=== PATIENT | female | born 1985 | race American Indian/Alaskan Native ===

== ENCOUNTER 2016-12-11 11:51 | Emergency (ER) | payer MEDICAID ==
[2016-12-11 12:41] LABS: Basophils % (Auto) 0.5 % (0.0-1.8); Eosinophils % (Auto) 0.7 % (0.0-4.3); Hematocrit 35.6 % (30.3-42.9); Hemoglobin 11.3 gm/dl (10.1-14.3); Mean Corpuscular HGB Conc 32 % (30-34); Mean Corpuscular Volume 80 fl (79-97); Platelet Count 447 K/mm3 (140-440); Red Blood Count 4.45 M/mm3 (3.65-5.03); Red Cell Distribution Width 18.9 % (13.2-15.2); White Blood Count 10.9 K/mm3 (4.5-11.0)
[2016-12-11 12:45] LABS: Mean Corpuscular Hemoglobin 25 pg (28-32)
[2016-12-11 12:52] LABS: Anion Gap 17 mmol/L; BUN/Creatinine Ratio 8.33; Blood Urea Nitrogen 5 mg/dL (7-17); Calcium 9.1 mg/dL (8.4-10.2); Carbon Dioxide 24 mmol/L (22-30); Chloride 102.2 mmol/L (98-107); Glucose 121 mg/dL (65-100); Potassium 3.5 mmol/L (3.6-5.0); Sodium 140 mmol/L (137-145)
[2016-12-11] MEDS ORDERED: ATIVAN IV ONE (13:03)
[2016-12-11] MEDS ORDERED: NACL 0.9% 1000 ML 1,000 ML IV ONE (13:03)
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
[2016-12-11 13:20] LABS: Urine Drugs of Abuse Note Disclamer
[2016-12-11 13:42] LABS: Bacteria,Urine 2+ /HPF (Negative); Bilirubin,Urine NEG (Negative); Blood,Urine SM (Negative); Ketones,Urine NEG (Negative); Leukocyte Esterase,Urine MOD (Negative); Mucus,Urine 1+ /HPF; Nitrite,Urine POS (Negative); Urobilinogen,Urine < 2.0 mg/dL (<2.0)
[2016-12-11 14:56] VITALS: BP 176/92
== END 2016-12-11 14:59 | disposition home or self-care (01) ==
LOC: ED 11:51
DX: T65.91XA Toxic effect of unspecified substance, accidental (unintentional), initial encounter (principal); F19.10 Other psychoactive substance abuse, uncomplicated; F12.90 Cannabis use, unspecified, uncomplicated; Y92.89 Other specified places as the place of occurrence of the external cause; Z91.041 Radiographic dye allergy status; Z91.013 Allergy to seafood
CPT/HCPCS: 36415; 80048; 80307; 81001; 81025; 85025; 96361; 96374; 99283; J2060; J7030

== ENCOUNTER 2018-08-26 07:30 | Emergency (ER) | payer MEDICAID ==
[2018-08-26] MEDS ORDERED: ASPIRIN PO ONE (09:01)
--- NOTE | 2018-08-26 09:21 | Emergency Department Report ---
ED General Adult HPI - General Chief complaint: Abdominal Pain Stated complaint: CHEST PAIN/LOWER PAIN Time Seen by Provider: 08/26/18 09:13 Source: patient Mode of arrival: Ambulatory Limitations: No Limitations - History of Present Illness Initial comments: This is a 33-year-old female with no medical history and no primary care with a litany of complaints. Her primary reason for coming is episodes of chest and back pain which are seconds in duration occurring 3-4 times a day for the last 2 weeks. This is her first visit for the same. The patient has multiple other complaints to include abdomen and leg pain anterior thigh. She appears to have allodynia. She states that body parts hurt when she moves. She complains of discomfort on a deep inspiration in her chest but no shortness of breath or truly pleuritic pain. She denies fever or chills. She denies nausea vomiting diarrhea or any apparent change. -: week(s) Location: chest, back, abdomen, lower extremity Radiation: non-radiation Severity scale (0 -10): 4 Quality: aching, other (very brief duration "seconds".) Consistency: intermittent Improves with: none Worsens with: movement Associated Symptoms: denies other symptoms Treatments Prior to Arrival: none - Related Data Previous Rx's Medication Instructions Recorded Last Taken Type ALPRAZolam [Xanax TAB] 0.5 mg PO BID PRN #6 tab 12/11/16 Unknown Rx Ciprofloxacin HCl [Ciprofloxacin 500 mg PO Q12HR 7 Days tab 12/11/16 Unknown Rx TAB] Sulfamethoxazole/Trimethoprim 1 each PO BID #6 tablet 12/11/16 Unknown Rx [Bactrim DS TAB] Ferrous Gluconate [Fergon 325 MG 325 mg PO TID #20 tablet 08/26/18 Unknown Rx tab] HYDROcodone/APAP 5-325 [[place] 1 each PO Q6HR PRN #10 tablet 08/26/18 Unknown Rx 5/325] Sulfamethoxazole/Trimethoprim 1 each PO BID #14 tablet 08/26/18 Unknown Rx [Bactrim DS TAB] Allergies Allergy/AdvReac Type Severity Reaction Status Date / Time apple Allergy Itching Verified 08/26/18 07:32 Iodinated Contrast- Oral and Allergy Swelling Verified 08/26/18 07:32 IV Dye shellfish derived Allergy Swelling Verified 08/26/18 07:32 ED Review of Systems ROS: Stated complaint: CHEST PAIN/LOWER PAIN Other details as noted in HPI Constitutional: denies: chills, fever Eyes: denies: eye pain, eye discharge, vision change ENT: denies: ear pain, throat pain Respiratory: denies: cough, shortness of breath, wheezing Cardiovascular: chest pain. denies: palpitations Endocrine: no symptoms reported Gastrointestinal: abdominal pain. denies: nausea, diarrhea Genitourinary: abnormal menses. denies: urgency, dysuria, discharge Musculoskeletal: back pain, myalgia. denies: joint swelling, arthralgia Skin: denies: rash, lesions Neurological: denies: headache, weakness, paresthesias Psychiatric: denies: anxiety, depression Hematological/Lymphatic: denies: easy bleeding, easy bruising ED Past Medical Hx - Past Medical History Previous Medical History?: No - Surgical History Hx Cholecystectomy: Yes Additional Surgical History: - Social History Smoking Status: Never Smoker Substance Use Type: None - Medications Home Medications: Home Medications Medication Instructions Recorded Confirmed Last Taken Type ALPRAZolam [Xanax TAB] 0.5 mg PO BID PRN #6 tab 12/11/16 Unknown Rx Ciprofloxacin HCl [Ciprofloxacin 500 mg PO Q12HR 7 Days tab 12/11/16 Unknown Rx TAB] Sulfamethoxazole/Trimethoprim 1 each PO BID #6 tablet 12/11/16 Unknown Rx [Bactrim DS TAB] Ferrous Gluconate [Fergon 325 MG 325 mg PO TID #20 tablet 08/26/18 Unknown Rx tab] HYDROcodone/APAP 5-325 [[place] 1 each PO Q6HR PRN #10 tablet 08/26/18 Unknown Rx 5/325] Sulfamethoxazole/Trimethoprim 1 each PO BID #14 tablet 08/26/18 Unknown Rx [Bactrim DS TAB] ED Physical Exam - General Limitations: No Limitations General appearance: obese - Head Head exam: Present: atraumatic, normocephalic - Eye Eye exam: Present: normal appearance - ENT ENT exam: Present: mucous membranes moist - Neck Neck exam: Present: normal inspection. Absent: tenderness, meningismus - Respiratory Respiratory exam: Present: normal lung sounds bilaterally. Absent: respiratory distress - Cardiovascular Cardiovascular Exam: Present: regular rate, normal rhythm. Absent: systolic murmur, diastolic murmur, rubs, gallop - GI/Abdominal GI/Abdominal exam: Present: soft, normal bowel sounds. Absent: distended, tenderness, guarding, rebound, rigid - Extremities Exam Extremities exam: Present: normal inspection, full ROM, normal capillary refill. Absent: tenderness, pedal edema, joint swelling, calf tenderness - Back Exam Back exam: Present: normal inspection. Absent: CVA tenderness (R), CVA tenderness (L) - Neurological Exam Neurological exam: Present: alert, oriented X3, CN II-XII intact. Absent: motor sensory deficit - Psychiatric Psychiatric exam: Present: normal affect, normal mood - Skin Skin exam: Present: warm, dry, intact, normal color. Absent: rash ED Course Vital Signs 08/26/18 08/26/18 08/26/18 07:34 08:30 08:31 Temperature 98.1 F Pulse Rate 94 H 86 85 Respiratory 18 14 17 Rate Blood Pressure 152/84 O2 Sat by Pulse 99 Oximetry 08/26/18 08/26/18 08/26/18 08:33 08:35 08:37 Temperature Pulse Rate 83 86 83 Respiratory 28 H 20 20 Rate Blood Pressure 133/75 133/75 O2 Sat by Pulse 99 98 96 Oximetry 08/26/18 08/26/18 08:38 08:39 Temperature Pulse Rate 84 Respiratory 18 17 Rate Blood Pressure 133/75 O2 Sat by Pulse 100 97 Oximetry - Reevaluation(s) Reevaluation #1: Patient is a significant pain in the emergency department. Her CT perhaps is most indicative of a recent viral illness. She has some lymphadenopathy but nothing abnormal intra-abdominal or in her chest. She is appropriate for outpatient follow-up. 08/26/18 13:05 ED Medical Decision Making - Lab Data Result diagrams: 08/26/18 09:08 08/26/18 09:08 Laboratory Results - last 24 hr 08/26/18 08/26/18 08/26/18 09:08 09:08 09:08 WBC 10.1 RBC 3.64 L Hgb 9.3 L Hct 28.5 L MCV 78 L MCH 25 L MCHC 33 RDW 17.9 H Plt Count 490 H Lymph % (Auto) 18.5 [place] % (Auto) 5.5 Eos % (Auto) 4.0 Baso % (Auto) 0.5 Lymph # 1.9 [place] # 0.5 Eos # 0.4 Baso # 0.1 Seg Neutrophils % 71.5 H Seg Neutrophils # 7.2 PT INR APTT D-Dimer Sodium 136 L Potassium 3.9 Chloride 101.7 Carbon Dioxide 24 Anion Gap 14 BUN 7 Creatinine 0.6 L Estimated GFR > 60 BUN/Creatinine Ratio 12 Glucose 99 Calcium 7.9 L Magnesium 1.90 Total Bilirubin 0.50 Direct Bilirubin < 0.2 Indirect Bilirubin 0.3 AST 16 ALT 16 Alkaline Phosphatase 100 Total Creatine Kinase 60 CK-MB (CK-2) < 1.0 CK-MB (CK-2) Rel Index 1.6 Troponin T < 0.010 NT-Pro-B Natriuret Pep 37.75 Total Protein 8.4 H Albumin 3.3 L Albumin/Globulin Ratio 0.6 Lipase 29 HCG, Qual 08/26/18 08/26/18 09:26 09:26 WBC RBC Hgb Hct MCV MCH MCHC RDW Plt Count Lymph % (Auto) [place] % (Auto) Eos % (Auto) Baso % (Auto) Lymph # [place] # Eos # Baso # Seg Neutrophils % Seg Neutrophils # PT 13.9 INR 1.01 APTT 30.4 D-Dimer 638.52 H Sodium Potassium Chloride Carbon Dioxide Anion Gap BUN Creatinine Estimated GFR BUN/Creatinine Ratio Glucose Calcium Magnesium Total Bilirubin Direct Bilirubin Indirect Bilirubin AST ALT Alkaline Phosphatase Total Creatine Kinase CK-MB (CK-2) CK-MB (CK-2) Rel Index Troponin T NT-Pro-B Natriuret Pep Total Protein Albumin Albumin/Globulin Ratio Lipase HCG, Qual Negative - EKG Data -: EKG Interpreted by Ut EKG shows normal: sinus rhythm, axis, intervals, QRS complexes, ST-T waves Rate: normal - EKG Data Interpretation: no acute changes - Radiology Data Radiology results: report reviewed Contrast bolus is adequate. The thoracic aorta, abdominal aorta and all major branches are widely patent with less than 10% stenosis. No atherosclerotic disease, stenosis, aneurysm or dissection. Heart size is borderline. The lungs are clear. No mediastinal mass or adenopathy. There are multiple borderline to mildly enlarged lymph nodes in the axillary chains. One of the largest lymph nodes measures 2.6 x 1.7 cm and the left axilla. The gallbladder has been removed. The liver, biliary system, pancreas, spleen, kidneys, adrenal glands, bowel loops and appendix are unremarkable. The uterus and right adnexa are unremarkable. A 4.8 x 3.7 cm cyst is suspected in the left ovary. The bladder is within normal limits. There are multiple borderline to mildly enlarged bilateral inguinal lymph nodes. One of the largest lymph nodes measures 2.4 x 1.4 cm in the right groin. No intra-abdominal adenopathy is appreciated. IMPRESSION: Normal CTA of the chest abdomen and pelvis. Left ovarian cyst. Borderline to mildly enlarged bilateral axillary and inguinal lymph nodes. Followup is recommended. Critical care attestation.: If time is entered above; I have spent that time in minutes in the direct care of this critically ill patient, excluding procedure time. ED Disposition Clinical Impression: Systemic viral illness, Lymphadenopathy Chest pain Qualifiers: Chest pain type: unspecified Qualified Code(s): R07.9 - Chest pain, unspecified Disposition: TO HOME OR SELFCARE Is pt being admited?: No Does the pt Need Aspirin: No Condition: Stable Instructions: Abdominal Pain (ED), Chest Pain (ED), Lymphadenopathy (ED) Additional Instructions: Further evaluation the primary care setting is recommended. Return any acute change or worsening symptoms. Increase fluids. Return difficulty in breathing fever or chills. Increase fluids and rest. I'm going to put you on iron supplements for your anemia as well. Prescriptions: Ferrous Gluconate [Fergon 325 MG tab] 325 mg PO TID #20 tablet HYDROcodone/APAP 5-325 [Glide 5/325] 1 each PO Q6HR PRN #10 tablet PRN Reason: Pain Sulfamethoxazole/Trimethoprim [Bactrim DS TAB] 1 each PO BID #14 tablet Referrals: [facility] [Provider Group] - 2-3 Days PRIMARY CARE, [Primary Care Provider] - 24 Hours Time of Disposition: 13:07
[2018-08-26 09:30] LABS: Basophils # (Auto) 0.1 K/mm3 (0.0-0.1); Basophils % (Auto) 0.5 % (0.0-1.8); Eosinophils # (Auto) 0.4 K/mm3 (0.0-0.4); Hematocrit 28.5 % (30.3-42.9); Hemoglobin 9.3 gm/dl (10.1-14.3); Lymphocytes # (Auto) 1.9 K/mm3 (1.2-5.4); Lymphocytes % (Auto) 18.5 % (13.4-35.0); Mean Corpuscular HGB Conc 33 % (30-34); Mean Corpuscular Volume 78 fl (79-97); Monocytes # (Auto) 0.5 K/mm3 (0.0-0.8); Monocytes % (Auto) 5.5 % (0.0-7.3); Platelet Count 490 K/mm3 (140-440); Red Blood Count 3.64 M/mm3 (3.65-5.03); Red Cell Distribution Width 17.9 % (13.2-15.2)
[2018-08-26 09:31] LABS: BUN/Creatinine Ratio 12; Blood Urea Nitrogen 7 mg/dL (7-17); Calcium 7.9 mg/dL (8.4-10.2); Hemolysis Index 6
[2018-08-26 09:43] LABS: INR 1.01 (0.87-1.13)
[2018-08-26 09:44] LABS: Partial Thromboplastin Time 30.4 Sec. (24.2-36.6)
[2018-08-26 10:06] LABS: Alanine Aminotransferase 16 units/L (7-56); Albumin 3.3 g/dL (3.9-5)
[2018-08-26 10:09] LABS: Bilirubin,Direct < 0.2 mg/dL (0-0.2); Creatine Kinase MB < 1.0 ng/mL (0.0-4.0)
--- NOTE | 2018-08-26 11:03 | XRay Report ---
AP CHEST: HISTORY: chest pain AP view of the chest demonstrates a normal mediastinal and cardiac contour with clear lungs and normal bony and soft tissue structures. IMPRESSION: Unremarkable AP chest.
--- NOTE | 2018-08-26 12:26 | Cat Scan Report ---
CT ANGIOGRAM CHEST CT ANGIOGRAM ABDOMEN AND PELVIS History: Chest pain, abdominal pain. Technique: Helical CT following IV contrast. Sagittal and coronal reformatted images. No 3-dimensional reformations were present at the time of dictation. Findings: Contrast bolus is adequate. The thoracic aorta, abdominal aorta and all major branches are widely patent with less than 10% stenosis. No atherosclerotic disease, stenosis, aneurysm or dissection. Heart size is borderline. The lungs are clear. No mediastinal mass or adenopathy. There are multiple borderline to mildly enlarged lymph nodes in the axillary chains. One of the largest lymph nodes measures 2.6 x 1.7 cm and the left axilla. The gallbladder has been removed. The liver, biliary system, pancreas, spleen, kidneys, adrenal glands, bowel loops and appendix are unremarkable. The uterus and right adnexa are unremarkable. A 4.8 x 3.7 cm cyst is suspected in the left ovary. The bladder is within normal limits. There are multiple borderline to mildly enlarged bilateral inguinal lymph nodes. One of the largest lymph nodes measures 2.4 x 1.4 cm in the right groin. No intra-abdominal adenopathy is appreciated. IMPRESSION: Normal CTA of the chest abdomen and pelvis. Left ovarian cyst. Borderline to mildly enlarged bilateral axillary and inguinal lymph nodes. Followup is recommended.
[2018-08-26] MEDS ORDERED: ASPIRIN ONE (12:35)
[2018-08-26 13:37] VITALS: BP 150/87
== END 2018-08-26 13:37 | disposition home or self-care (01) ==
LOC: ED 07:30
DX: B33.8 Other specified viral diseases (principal); R59.1 Generalized enlarged lymph nodes; R07.9 Chest pain, unspecified; Z91.041 Radiographic dye allergy status; Z91.013 Allergy to seafood; Z91.018 Allergy to other foods
CPT/HCPCS: 36415; 71045; 71275; 74174; 80048; 80076; 82550; 82553; 83690; 83735; 83880; 84484; 84703; 85025; 85379; 85610; 85730; 93005; 93010; 99285; Q9967

== ENCOUNTER 2018-09-07 15:47 | Emergency (ER) | payer MEDICAID ==
[2018-09-07 16:41] VITALS: BP 160/105
[2018-09-07] MEDS ORDERED: BICILLIN L-A IM ONE (16:43)
--- NOTE | 2018-09-07 16:44 | Emergency Department Report ---
ED Female HPI - General Chief complaint: Urogenital-Female Stated complaint: STD CHECK Time Seen by Provider: 09/07/18 16:38 Source: patient Mode of arrival: Ambulatory Limitations: No Limitations - History of Present Illness Initial comments: Patient is [facility] since their next appt is not until next . Patient denies any abx allergies. No fever or chills. Are you Now?: No - Related Data Sexually active: Yes Previous Rx's Medication Instructions Recorded Last Taken Type ALPRAZolam [Xanax TAB] 0.5 mg PO BID PRN #6 tab 12/11/16 Unknown Rx Ciprofloxacin HCl [Ciprofloxacin 500 mg PO Q12HR 7 Days tab 12/11/16 Unknown Rx TAB] Sulfamethoxazole/Trimethoprim 1 each PO BID #6 tablet 12/11/16 Unknown Rx [Bactrim DS TAB] Ferrous Gluconate [Fergon 325 MG 325 mg PO TID #20 tablet 08/26/18 Unknown Rx tab] HYDROcodone/APAP 5-325 [[place] 1 each PO Q6HR PRN #10 tablet 08/26/18 Unknown Rx 5/325] Sulfamethoxazole/Trimethoprim 1 each PO BID #14 tablet 08/26/18 Unknown Rx [Bactrim DS TAB] Allergies Allergy/AdvReac Type Severity Reaction Status Date / Time apple Allergy Itching Verified 09/07/18 15:49 Iodinated Contrast- Oral and Allergy Swelling Verified 09/07/18 15:49 IV Dye shellfish derived Allergy Swelling Verified 09/07/18 15:49 ED Review of Systems ROS: Stated complaint: STD CHECK Other details as noted in HPI Comment: All other systems reviewed and negative ED Past Medical Hx - Surgical History Hx Cholecystectomy: Yes Additional Surgical History: - Social History Smoking Status: Never Smoker Substance Use Type: None - Medications Home Medications: Home Medications Medication Instructions Recorded Confirmed Last Taken Type ALPRAZolam [Xanax TAB] 0.5 mg PO BID PRN #6 tab 12/11/16 Unknown Rx Ciprofloxacin HCl [Ciprofloxacin 500 mg PO Q12HR 7 Days tab 12/11/16 Unknown Rx TAB] Sulfamethoxazole/Trimethoprim 1 each PO BID #6 tablet 12/11/16 Unknown Rx [Bactrim DS TAB] Ferrous Gluconate [Fergon 325 MG 325 mg PO TID #20 tablet 08/26/18 Unknown Rx tab] HYDROcodone/APAP 5-325 [[place] 1 each PO Q6HR PRN #10 tablet 08/26/18 Unknown Rx 5/325] Sulfamethoxazole/Trimethoprim 1 each PO BID #14 tablet 08/26/18 Unknown Rx [Bactrim DS TAB] ED Physical Exam - General Limitations: No Limitations General appearance: alert, in no apparent distress - Head Head exam: Present: atraumatic, normocephalic - Eye Eye exam: Present: normal appearance - Neurological Exam Neurological exam: Present: alert, oriented X3 - Psychiatric Psychiatric exam: Present: normal affect, normal mood - Skin Skin exam: Present: warm, dry, intact, normal color. Absent: rash ED Medical Decision Making - Medical Decision Making Patient has been seen by this provider. Patient will be given first PCN injection and is instructed to follow up with [facility] for next treatment. Patient verbalized understand. Critical care attestation.: If time is entered above; I have spent that time in minutes in the direct care of this critically ill patient, excluding procedure time. ED Disposition Clinical Impression: Syphilis Disposition: DC- TO HOME OR SELFCARE Is pt being admited?: No Does the pt Need Aspirin: No Condition: Stable Instructions: Syphilis (ED) Additional Instructions: Please follow up with [facility] for next treatment. [facility]errals: [facility] [Outside] - 3-5 Days [facility] [place] [Outside] - 3-5 Days [facility] [Outside] - 3-5 Days
== END 2018-09-07 17:07 | disposition home or self-care (01) ==
LOC: ED 15:47
DX: A53.9 Syphilis, unspecified (principal); Z91.018 Allergy to other foods; Z91.013 Allergy to seafood; Z91.041 Radiographic dye allergy status; Z90.49 Acquired absence of other specified parts of digestive tract
CPT/HCPCS: 96372; 99282; J0561

== ENCOUNTER 2020-06-05 11:52 | Emergency (ER) | payer MEDICAID ==
--- NOTE | 2020-06-05 14:27 | Emergency Department Report ---
<ADELAIDE LARA - Last Filed: 06/05/20 19:18> ED General Adult HPI - General Chief complaint: Back Pain/Injury Stated complaint: RT SIDE PAIN Time Seen by Provider: 06/05/20 13:42 Source: patient Mode of arrival: Ambulatory Limitations: No Limitations - History of Present Illness Initial comments: Patient is a 34-year-old female presents emergency room with complaints of right flank pain that began a few days ago. She denies any fall or injury. She states that the pain is worse with movement. She states that she feels a pulling sensation whenever she stands up. She denies any chest pain, pleuritic chest pain, shortness of breath, cough, hemoptysis, nausea, vomiting, diarrhea, fever, dysuria, urinary frequency, numbness, weakness, bowel or bladder incontinence. No past medical history. No allergies to medications. Last menstrual cycle 05/18/2020. She states that she was previously allergic to shellfish and that is why she believes she had a contrast allergy but she is now able to eat shellfish without difficulty therefore patient does not have allergy to IV contrast. Past surgical history of cholecystectomy. - Related Data Previous Rx's Medication Instructions Recorded Last Taken Type ALPRAZolam [Xanax TAB] 0.5 mg PO BID PRN #6 tab 12/11/16 Unknown Rx Ciprofloxacin HCl [Ciprofloxacin 500 mg PO Q12HR 7 Days tab 12/11/16 Unknown Rx TAB] Sulfamethoxazole/Trimethoprim 1 each PO BID #6 tablet 12/11/16 Unknown Rx [Bactrim DS TAB] Ferrous Gluconate [Fergon 325 MG 325 mg PO TID #20 tablet 08/26/18 Unknown Rx tab] HYDROcodone/APAP 5-325 [[place] 1 each PO Q6HR PRN #10 tablet 08/26/18 Unknown Rx 5/325] Sulfamethoxazole/Trimethoprim 1 each PO BID #14 tablet 08/26/18 Unknown Rx [Bactrim DS TAB] Allergies Allergy/AdvReac Type Severity Reaction Status Date / Time apple Allergy Itching Verified 09/07/18 15:49 shellfish derived Allergy Swelling Verified 09/07/18 15:49 Iodinated Contrast Media AdvReac Unknown Unknown Unverified 06/05/20 17:05 ED Review of Systems Comment: All other systems reviewed and negative ED Past Medical Hx - Past Medical History Previous Medical History?: No - Surgical History Hx Cholecystectomy: Yes Additional Surgical History: - Social History Smoking Status: Never Smoker - Medications Home Medications: Home Medications Medication Instructions Recorded Confirmed Last Taken Type ALPRAZolam [Xanax TAB] 0.5 mg PO BID PRN #6 tab 12/11/16 Unknown Rx Ciprofloxacin HCl [Ciprofloxacin 500 mg PO Q12HR 7 Days tab 12/11/16 Unknown Rx TAB] Sulfamethoxazole/Trimethoprim 1 each PO BID #6 tablet 12/11/16 Unknown Rx [Bactrim DS TAB] Ferrous Gluconate [Fergon 325 MG 325 mg PO TID #20 tablet 08/26/18 Unknown Rx tab] HYDROcodone/APAP 5-325 [[place] 1 each PO Q6HR PRN #10 tablet 08/26/18 Unknown Rx 5/325] Sulfamethoxazole/Trimethoprim 1 each PO BID #14 tablet 08/26/18 Unknown Rx [Bactrim DS TAB] ED Physical Exam - General Limitations: No Limitations General appearance: alert, in no apparent distress - Head Head exam: Present: atraumatic, normocephalic - Eye Eye exam: Present: normal appearance - ENT ENT exam: Present: mucous membranes moist - Respiratory Respiratory exam: Present: normal lung sounds bilaterally. Absent: respiratory distress, wheezes, rales, rhonchi, stridor, chest wall tenderness, accessory muscle use, decreased breath sounds, prolonged expiratory - Cardiovascular Cardiovascular Exam: Present: regular rate, normal rhythm, normal heart sounds. Absent: systolic murmur, diastolic murmur, rubs, gallop - GI/Abdominal GI/Abdominal exam: Present: soft, tenderness (mild RUQ), normal bowel sounds. Absent: distended, guarding, rebound, rigid - Back Exam Back exam: Present: normal inspection, full ROM, CVA tenderness (R) (mild). Absent: CVA tenderness (L), paraspinal tenderness, vertebral tenderness - Neurological Exam Neurological exam: Present: alert, oriented X3, CN II-XII intact, normal gait. Absent: motor sensory deficit - Psychiatric Psychiatric exam: Present: normal affect, normal mood - Skin Skin exam: Present: warm, dry, intact ED Course - Consultations Consultation #1: 06/05/20 18:[address] Higgins, radiologist who advised that there is a typo in the radiology report, it is supposed to say recommend ultrasound of right ovarian cyst, he states he will place addendum ED Medical Decision Making - Lab Data Result diagrams: 06/05/20 14:25 06/05/20 14:25 Lab Results 06/05/20 06/05/20 06/05/20 Range/Units 14:25 14:25 14:25 WBC 11.2 H (4.5-11.0) K/mm3 RBC 4.16 (3.65-5.03) M/mm3 Hgb 10.8 (10.1-14.3) gm/dl Hct 33.0 (30.3-42.9) % MCV 79 (79-97) fl MCH 26 L (28-32) pg MCHC 33 (30-34) % RDW 18.8 H (13.2-15.2) % Plt Count 412 (140-440) K/mm3 Lymph % (Auto) 26.8 (13.4-35.0) % Jay % (Auto) 7.1 (0.0-7.3) % Eos % (Auto) 4.2 (0.0-4.3) % Baso % (Auto) 0.4 (0.0-1.8) % Lymph # (Auto) 3.0 (1.2-5.4) K/mm3 Jay # (Auto) 0.8 (0.0-0.8) K/mm3 Eos # (Auto) 0.5 H (0.0-0.4) K/mm3 Baso # (Auto) 0.1 (0.0-0.1) K/mm3 Seg Neutrophils % 61.5 (40.0-70.0) % Seg Neutrophils # 6.9 (1.8-7.7) K/mm3 Sodium 135 L (137-145) mmol/L Potassium 3.9 (3.6-5.0) mmol/L Chloride 99.8 (98-107) mmol/L Carbon Dioxide 23 (22-30) mmol/L Anion Gap 16 mmol/L BUN 7 (7-17) mg/dL Creatinine 0.6 (0.6-1.2) mg/dL Estimated GFR > 60 ml/min BUN/Creatinine Ratio 12 % Glucose 182 H (65-100) mg/dL Calcium 9.0 (8.4-10.2) mg/dL Total Bilirubin 0.40 (0.1-1.2) mg/dL AST 12 (5-40) units/L ALT 11 (7-56) units/L Alkaline Phosphatase 115 (35-129) units/L Total Protein 7.9 (6.3-8.2) g/dL Albumin 3.7 L (3.9-5) g/dL Albumin/Globulin Ratio 0.9 % Lipase 27 (13-60) units/L HCG, Qual Negative (Negative) Urine Color (Yellow) Urine Turbidity (Clear) Urine pH (5.0-7.0) Ur Specific [place] (1.003-1.030) Urine Protein (Negative) mg/dL Urine Glucose (UA) (Negative) mg/dL Urine Ketones (Negative) mg/dL Urine Blood (Negative) Urine Nitrite (Negative) Urine Bilirubin (Negative) Urine Urobilinogen (<2.0) mg/dL Ur Leukocyte Esterase (Negative) Urine WBC (Auto) (0.0-6.0) /HPF Urine RBC (Auto) (0.0-6.0) /HPF U Epithel Cells (Auto) (0-13.0) /HPF Urine Mucus /HPF 06/05/20 Range/Units Unknown WBC (4.5-11.0) K/mm3 RBC (3.65-5.03) M/mm3 Hgb (10.1-14.3) gm/dl Hct (30.3-42.9) % MCV (79-97) fl MCH (28-32) pg MCHC (30-34) % RDW (13.2-15.2) % Plt Count (140-440) K/mm3 Lymph % (Auto) (13.4-35.0) % Jay % (Auto) (0.0-7.3) % Eos % (Auto) (0.0-4.3) % Baso % (Auto) (0.0-1.8) % Lymph # (Auto) (1.2-5.4) K/mm3 Jay # (Auto) (0.0-0.8) K/mm3 Eos # (Auto) (0.0-0.4) K/mm3 Baso # (Auto) (0.0-0.1) K/mm3 Seg Neutrophils % (40.0-70.0) % Seg Neutrophils # (1.8-7.7) K/mm3 Sodium (137-145) mmol/L Potassium (3.6-5.0) mmol/L Chloride (98-107) mmol/L Carbon Dioxide (22-30) mmol/L Anion Gap mmol/L BUN (7-17) mg/dL Creatinine (0.6-1.2) mg/dL Estimated GFR ml/min BUN/Creatinine Ratio % Glucose (65-100) mg/dL Calcium (8.4-10.2) mg/dL Total Bilirubin (0.1-1.2) mg/dL AST (5-40) units/L ALT (7-56) units/L Alkaline Phosphatase (35-129) units/L Total Protein (6.3-8.2) g/dL Albumin (3.9-5) g/dL Albumin/Globulin Ratio % Lipase (13-60) units/L HCG, Qual (Negative) Urine Color Yellow (Yellow) Urine Turbidity Clear (Clear) Urine pH 5.0 (5.0-7.0) Ur Specific [place] 1.027 (1.003-1.030) Urine Protein 30 mg/dl (Negative) mg/dL Urine Glucose (UA) Neg (Negative) mg/dL Urine Ketones Neg (Negative) mg/dL Urine Blood Neg (Negative) Urine Nitrite Neg (Negative) Urine Bilirubin Neg (Negative) Urine Urobilinogen < 2.0 (<2.0) mg/dL Ur Leukocyte Esterase Neg (Negative) Urine WBC (Auto) 2.0 (0.0-6.0) /HPF Urine RBC (Auto) 3.0 (0.0-6.0) /HPF U Epithel Cells (Auto) 3.0 (0-13.0) /HPF Urine Mucus 2+ /HPF Vital Signs 06/05/20 06/05/20 11:59 14:49 Temperature 98.1 F 98.3 F Pulse Rate 106 H 70 Respiratory 18 18 Rate Blood Pressure 139/86 Blood Pressure 148/92 [Left] O2 Sat by Pulse 93 95 Oximetry - Radiology Data Radiology results: report reviewed Ordering Physician: YVONNE STEINER Date of Service: 06/05/20 Procedure(s): CT abdomen pelvis w con Accession Number(s): [id number] cc: YVONNE STEINER CT ABDOMEN AND PELVIS WITH IV CONTRAST INDICATION: RUQ, right flank pain. Right upper quadrant abdominal pain COMPARISON: None available. TECHNIQUE: Axial CT images were obtained through the abdomen and pelvis after 100 mL IV contrast. All CT scans at this location are performed using CT dose reduction for ALARA by means of automated exposure control. FINDINGS -- ABDOMEN: Lung Bases: No acute abnormality. Mild cardiomegaly. Liver: Enlarged and diffusely hypoechoic dense.. Gallbladder: Removed. Bile Ducts: Normal. Pancreas: Normal. Spleen: Normal. Adrenals: Normal. Right Kidney and Proximal Ureter: Normal. Left Kidney and Proximal Ureter: Normal. Stomach and Bowel: Normal. Lymph Nodes: No significant adenopathy. Aorta: No significant abnormality. IVC: Normal. Additional Findings: None. FINDINGS -- PELVIS: Urinary Bladder and Distal Ureters: Normal. Reproductive Organs: Several cystlike lesions are present within both ovaries the largest on the right measuring about 3 x 2 cm. Appendix: Normal. Bowel: No acute abnormality. Free Fluid: None. Lymph Nodes: Extensive bilateral inguinal adenopathy, nonspecific.. Additional Findings: None. Skeletal System: No acute abnormality. IMPRESSION: 1. Enlarged fatty liver. The liver measures 23 cm craniocaudal. Prior cholecystectomy. 2. 3 x 2 cm right ovarian cyst. Recommend ultrasound evaluation of the right renal cyst. 3. Bilateral inguinal adenopathy, nonspecific. Signer Name: Chad Higgins MD Signed: 06/05/2020 5:12 PM Workstation Name: [id number] Transcribed By: BC Dictated By: Chad Higgins MD Electronically Authenticated By: Chad Higgins MD Signed Date/Time: 06/05/201711 DD/ 06 TD/TT: - Medical Decision Making Patient is a 34-year-old female presents emergency room with complaints of right flank pain that began a few days ago. She denies any fall or injury. She states that the pain is worse with movement. She states that she feels a p ulling sensation whenever she stands up. She denies any chest pain, pleuritic chest pain, shortness of breath, cough, hemoptysis, nausea, vomiting, diarrhea, fever, dysuria, urinary frequency, numbness, weakness, bowel or bladder incontinence. No past medical history. No allergies to medications. Last menstrual cycle 05/18/2020. She states that she was previously allergic to shellfish and that is why she believes she had a contrast allergy but she is now able to eat shellfish without difficulty therefore patient does not have allergy to IV contrast. Past surgical history of cholecystectomy. Initial vitals with mild tachycardia which improved to normal upon repeat. On exam she has mild right upper quadrant tenderness to palpation and mild right CVA tenderness, negative Ruiz sign, she had a cholecystectomy. Labs are stable UA without evidence of UTI. CT abd pelvis with IV contrast: 1. Enlarged fatty liver. The liver measures 23 cm craniocaudal. Prior cholecystectomy. 2. 3 x 2 cm right ovarian cyst. Recommend ultrasound evaluation of the right renal cyst. 3. Bilateral inguinal adenopathy, nonspecific. Spoke to Dr. Higgins, radiologist who advised that there is a typo in the radiology report, it is supposed to say recommend ultrasound of right ovarian cyst, he states he will place addendum Patient signed out to Annie Ospina PA-C pending ultrasound results ED Disposition Clinical Impression: Abdominal pain, Bilateral ovarian cysts Disposition: TO HOME OR SELFCARE Condition: Stable Instructions: Ovarian Cyst Additional Instructions: All x-rays study in ultrasounds are negative for any acute issues does show that she have a bilateral ovarian cyst. Referrals: PRIMARY CARE, [Primary Care Provider] - 3-5 Days JOSH PHELPS MD [Staff Physician] - 3-5 Days <LANA OSPINA - Last Filed: 06/05/20 20:35> ED Review of Systems ROS: Stated complaint: RT SIDE PAIN Other details as noted in HPI ED Course Vital Signs 06/05/20 06/05/20 06/05/20 11:59 14:49 20:05 Temperature 98.1 F 98.3 F Pulse Rate 106 H 70 87 Respiratory 18 18 17 Rate Blood Pressure 139/86 Blood Pressure 148/92 [Left] O2 Sat by Pulse 93 95 97 Oximetry ED Medical Decision Making - Lab Data Result diagrams: 06/05/20 14:25 06/05/20 14:25 - Radiology Data [facility] [address] [place] [address] Ultrasound Report Signed Patient: YENY THOMPSON MR#: [id number] : 1985 Acct:[id number] Age/Sex: 34 / F ADM Date: 06/05/20 Loc: ED Attending Dr: Ordering Physician: YVONNE STEINER Date of Service: 06/05/20 Procedure(s): US transvaginal Accession Number(s): [id number] cc: YVONNE STEINER ULTRASOUND PELVIS INDICATION / CLINICAL INFORMATION: abd pain, pelvic pain, abnormal CT. TECHNIQUE: Transabdominal and Transvaginal. Duplex Color Doppler used: Yes. COMPARISON: Prior CT abdomen pelvis dated today. FINDINGS: UTERUS: The uterus measures 11.0 x 5.0 x 4.0 cm. Endometrial thickness measures 7.2 mm. There is a small nabothian cyst near the cervix measures 3 mm. RIGHT ADNEXA: Right ovary measures 3.0 x 2.7 x 3.0 cm. There is a simple appearing right ovarian cyst measures 2.0 cm. Normal color Doppler blood flow. LEFT ADNEXA: Left ovary measures 2.2 x 1.2 x 2.2 cm. There is a 1.8 cm simple left ovarian cyst. Normal color Doppler blood flow. URINARY BLADDER: No significant abnormality. FREE FLUID: None. ADDITIONAL FINDINGS: None. IMPRESSION: 1. Bilateral simple ovarian cysts are likely dominant follicles. 2. Small nabothian cysts of the cervix. Signer Name: Colton Toure MD Signed: 06/05/2020 7:44 PM Workstation Name: [id number] Transcribed By: Dictated By: COLTON TOURE Electronically Authenticated By: COLTON TOURE Signed Date/Time: 06/05/201943 DD/ 39 TD/TT: - Medical Decision Making Patient is a 34-year-old female presents emergency room with complaints of right flank pain that began a few days ago. She denies any fall or injury. She states that the pain is worse with movement. She states that she feels a pulling sensation whenever she stands up. She denies any chest pain, pleuritic chest pain, shortness of breath, cough, hemoptysis, nausea, vomiting, diarrhea, fever, dysuria, urinary frequency, numbness, weakness, bowel or bladder incontinence. No past medical history. No allergies to medications. Last menstrual cycle 05/18/2020. She states that she was previously allergic to shellfish and that is why she believes she had a contrast allergy but she is now Ultrasound shows that patient has bilateral ovarian cysts the largest cyst 3.0 on the right. She has a narbolin cyst on her cervix. Patient be discharged h ome to follow-up with [facility]. Patient to take ibuprofen for pain. Critical care attestation.: If time is entered above; I have spent that time in minutes in the direct care of this critically ill patient, excluding procedure time. ED Disposition Is pt being admited?: No Does the pt Need Aspirin: No
[2020-06-05 14:50] VITALS: BP 148/92
[2020-06-05 14:50] LABS: Bilirubin,Urine NEG (Negative); Blood,Urine NEG (Negative); Color,Urine Yellow (Yellow); Mucus,Urine 2+ /HPF; Urobilinogen,Urine < 2.0 mg/dL (<2.0)
[2020-06-05 15:06] LABS: Basophils # (Auto) 0.1 K/mm3 (0.0-0.1); Basophils % (Auto) 0.4 % (0.0-1.8); Eosinophils # (Auto) 0.5 K/mm3 (0.0-0.4); Eosinophils % (Auto) 4.2 % (0.0-4.3); Hemoglobin 10.8 gm/dl (10.1-14.3); Lymphocytes % (Auto) 26.8 % (13.4-35.0); Mean Corpuscular HGB Conc 33 % (30-34); Mean Corpuscular Volume 79 fl (79-97); Monocytes # (Auto) 0.8 K/mm3 (0.0-0.8); Monocytes % (Auto) 7.1 % (0.0-7.3); Platelet Count 412 K/mm3 (140-440); Red Blood Count 4.16 M/mm3 (3.65-5.03); Red Cell Distribution Width 18.8 % (13.2-15.2)
[2020-06-05 15:44] LABS: Alanine Aminotransferase 11 units/L (7-56); Albumin 3.7 g/dL (3.9-5); Blood Urea Nitrogen 7 mg/dL (7-17); Hemolysis Index 1
[2020-06-05 15:58] LABS: BUN/Creatinine Ratio 12
--- NOTE | 2020-06-05 17:17 | Cat Scan Report ---
CT ABDOMEN AND PELVIS WITH IV CONTRAST INDICATION: RUQ, right flank pain. Right upper quadrant abdominal pain COMPARISON: None available. TECHNIQUE: Axial CT images were obtained through the abdomen and pelvis after 100 mL IV contrast. All CT scans a t this location are performed using CT dose reduction for ALARA by means of automated exposure contro l. FINDINGS -- ABDOMEN: Lung Bases: No acute abnormality. Mild cardiomegaly. Liver: Enlarged and diffusely hypoechoic dense.. Gallbladder: Removed. Bile Ducts: Normal. Pancreas: Normal. Spleen: Normal. Adrenals: Normal. Right Kidney and Proximal Ureter: Normal. Left Kidney and Proximal Ureter: Normal. Stomach and Bowel: Normal. Lymph Nodes: No significant adenopathy. Aorta: No significant abnormality. IVC: Normal. Additional Findings: None. FINDINGS -- PELVIS: Urinary Bladder and Distal Ureters: Normal. Reproductive Organs: Several cystlike lesions are present within both ovaries the largest on the righ t measuring about 3 x 2 cm. Appendix: Normal. Bowel: No acute abnormality. Free Fluid: None. Lymph Nodes: Extensive bilateral inguinal adenopathy, nonspecific.. Additional Findings: None. Skeletal System: No acute abnormality. IMPRESSION: 1. Enlarged fatty liver. The liver measures 23 cm craniocaudal. Prior cholecystectomy. 2. 3 x 2 cm right ovarian cyst. Recommend ultrasound evaluation of the right renal cyst. 3. Bilateral inguinal adenopathy, nonspecific. Signer Name: Chad Higgins MD Signed: 06/05/2020 5:12 PM Workstation Name: [id number]
--- NOTE | 2020-06-05 19:49 | Ultrasound Report ---
ULTRASOUND PELVIS INDICATION / CLINICAL INFORMATION: abd pain, pelvic pain, abnormal CT. TECHNIQUE: Transabdominal and Transvaginal. Duplex Color Doppler used: Yes. COMPARISON: Prior CT abdomen pelvis dated today. FINDINGS: UTERUS: The uterus measures 11.0 x 5.0 x 4.0 cm. Endometrial thickness measures 7.2 mm. There is a sm all nabothian cyst near the cervix measures 3 mm. RIGHT ADNEXA: Right ovary measures 3.0 x 2.7 x 3.0 cm. There is a simple appearing right ovarian cyst measures 2.0 cm. Normal color Doppler blood flow. LEFT ADNEXA: Left ovary measures 2.2 x 1.2 x 2.2 cm. There is a 1.8 cm simple left ovarian cyst. Norm al color Doppler blood flow. URINARY BLADDER: No significant abnormality. FREE FLUID: None. ADDITIONAL FINDINGS: None. IMPRESSION: 1. Bilateral simple ovarian cysts are likely dominant follicles. 2. Small nabothian cysts of the cervix. Signer Name: Colton Blanc MD Signed: 06/05/2020 7:44 PM Workstation Name: [id number]
== END 2020-06-05 20:45 | disposition home or self-care (01) ==
LOC: ED 11:52
DX: N83.202 Unspecified ovarian cyst, left side (principal); N83.201 Unspecified ovarian cyst, right side
CPT/HCPCS: 36415; 74177; 76830; 76856; 80053; 81001; 83690; 84703; 85025; 99284; Q9967

== ENCOUNTER 2020-12-19 13:29 | Emergency (ER) | payer MEDICAID ==
[2020-12-19 13:42] VITALS: BP 150/89
--- NOTE | 2020-12-19 14:44 | Emergency Department Report ---
- General Chief complaint: Skin/Abscess/Foreign Body Stated complaint: SORE BREAST Time Seen by Provider: 12/19/20 14:23 Source: patient Mode of arrival: Ambulatory Limitations: No Limitations - History of Present Illness Initial comments: Patient is a 35-year-old female presents emergency room complaints of a possible abscess underneath the right breast that began 3 days ago. She states that she has noticed a small amount of purulent drainage. She has a history of hydronidus suppurativa and states that she gets these frequently. She is not currently on any medications. She is not currently seeing a risk intern. She denies any fever, vomiting, diarrhea, chills. No other past medical history. No allergies to medications. She reports that when she takes antibiotics she frequently gets yeast infections. - Related Data Previous Rx's Medication Instructions Recorded Last Taken Type ALPRAZolam [Xanax TAB] 0.5 mg PO BID PRN #6 tab 12/11/16 Unknown Rx Ciprofloxacin HCl [Ciprofloxacin 500 mg PO Q12HR 7 Days tab 12/11/16 Unknown Rx TAB] Sulfamethoxazole/Trimethoprim 1 each PO BID #6 tablet 12/11/16 Unknown Rx [Bactrim DS TAB] Ferrous Gluconate [Fergon 325 MG 325 mg PO TID #20 tablet 08/26/18 Unknown Rx tab] HYDROcodone/APAP 5-325 [[place] 1 each PO Q6HR PRN #10 tablet 08/26/18 Unknown Rx 5/325] Sulfamethoxazole/Trimethoprim 1 each PO BID #14 tablet 08/26/18 Unknown Rx [Bactrim DS TAB] Chlorhexidine Gluconate [Hibiclens] 30 ml TP DAILY #1 bottle 12/19/20 Unknown Rx Fluconazole [Diflucan TAB] 100 mg PO QDAY 2 Days #2 tablet 12/19/20 Unknown Rx Sulfamethoxazole/Trimethoprim 1 each PO BID 10 Days #20 tablet 12/19/20 Unknown Rx [Bactrim DS TAB] Allergies Allergy/AdvReac Type Severity Reaction Status Date / Time No Known Allergies Allergy Unverified 12/19/20 13:39 Abscess Boil HPI - HPI Chief Complaint: Skin/Abscess/Foreign Body Stated Complaint: SORE BREAST Time Seen by Provider: 12/19/20 14:23 Home Medications: Previous Rx's Medication Instructions Recorded Last Taken Type ALPRAZolam [Xanax TAB] 0.5 mg PO BID PRN #6 tab 12/11/16 Unknown Rx Ciprofloxacin HCl [Ciprofloxacin 500 mg PO Q12HR 7 Days tab 12/11/16 Unknown Rx TAB] Sulfamethoxazole/Trimethoprim 1 each PO BID #6 tablet 12/11/16 Unknown Rx [Bactrim DS TAB] Ferrous Gluconate [Fergon 325 MG 325 mg PO TID #20 tablet 08/26/18 Unknown Rx tab] HYDROcodone/APAP 5-325 [[place] 1 each PO Q6HR PRN #10 tablet 08/26/18 Unknown Rx 5/325] Sulfamethoxazole/Trimethoprim 1 each PO BID #14 tablet 08/26/18 Unknown Rx [Bactrim DS TAB] Chlorhexidine Gluconate [Hibiclens] 30 ml TP DAILY #1 bottle 12/19/20 Unknown Rx Fluconazole [Diflucan TAB] 100 mg PO QDAY 2 Days #2 tablet 12/19/20 Unknown Rx Sulfamethoxazole/Trimethoprim 1 each PO BID 10 Days #20 tablet 12/19/20 Unknown Rx [Bactrim DS TAB] Allergies/Adverse Reactions: Allergies Allergy/AdvReac Type Severity Reaction Status Date / Time No Known Allergies Allergy Unverified 12/19/20 13:39 ED Review of Systems ROS: Stated complaint: SORE BREAST Other details as noted in HPI Comment: All other systems reviewed and negative ED Past Medical Hx - Past Medical History Previous Medical History?: No - Surgical History Hx Cholecystectomy: Yes Additional Surgical History: - Social History Smoking Status: Never Smoker Substance Use Type: None - Medications Home Medications: Home Medications Medication Instructions Recorded Confirmed Last Taken Type ALPRAZolam [Xanax TAB] 0.5 mg PO BID PRN #6 tab 12/11/16 Unknown Rx Ciprofloxacin HCl [Ciprofloxacin 500 mg PO Q12HR 7 Days tab 12/11/16 Unknown Rx TAB] Sulfamethoxazole/Trimethoprim 1 each PO BID #6 tablet 12/11/16 Unknown Rx [Bactrim DS TAB] Ferrous Gluconate [Fergon 325 MG 325 mg PO TID #20 tablet 08/26/18 Unknown Rx tab] HYDROcodone/APAP 5-325 [[place] 1 each PO Q6HR PRN #10 tablet 08/26/18 Unknown Rx 5/325] Sulfamethoxazole/Trimethoprim 1 each PO BID #14 tablet 08/26/18 Unknown Rx [Bactrim DS TAB] Chlorhexidine Gluconate [Hibiclens] 30 ml TP DAILY #1 bottle 12/19/20 Unknown Rx Fluconazole [Diflucan TAB] 100 mg PO QDAY 2 Days #2 tablet 12/19/20 Unknown Rx Sulfamethoxazole/Trimethoprim 1 each PO BID 10 Days #20 tablet 12/19/20 Unknown Rx [Bactrim DS TAB] ED Physical Exam - General Limitations: No Limitations General appearance: alert, in no apparent distress - Head Head exam: Present: atraumatic, normocephalic - Eye Eye exam: Present: normal appearance - ENT ENT exam: Present: mucous membranes moist - Neurological Exam Neurological exam: Present: alert, oriented X3 - Psychiatric Psychiatric exam: Present: normal affect, normal mood - Skin Skin exam: Present: warm, dry, other (5 cm area of induration with small opening and small amount of purulent drainage to the left lower breast and left breast c rease, no central area of fluctuance, erythema and increased warmth, mechanic recovery: SHARYN molina) ED Course Vital Signs 12/19/20 12/19/20 13:40 15:05 Temperature 98.6 F Pulse Rate 106 H 105 H Respiratory 20 Rate Blood Pressure 150/89 O2 Sat by Pulse 97 Oximetry ED Medical Decision Making - Medical Decision Making Patient is a 35-year-old female presents emergency room complaints of a possible abscess underneath the right breast that began 3 days ago. She states that she has noticed a small amount of purulent drainage. She has a history of hydronidus suppurativa and states that she gets these frequently. She is not currently on any medications. She is not currently seeing a risk intern. She denies any fever, vomiting, diarrhea, chills. No other past medical history. No allergies to medications. She reports that when she takes antibiotics she frequently gets yeast infections. Vitals with failure mild tachycardia, temperature is normal, likely secondary to pain from cellulitis. On exam:5 cm area of induration with small opening and small amount of purulent drainage to the left lower breast and left breast crease, no central area of fluctuance, erythema and increased warmth, mechanic recovery: SHARYN mloina. Examination appears consistent with cellulitis and early abscess formation with small amount of drainage, there is no central drainable abscess at this time. Patient will be started on a trial of outpatient antibiotics discussed the importance of reexamination within the next 3 days and discussed very strict return precautions with patient. Patient given prescription for Bactrim, fluconazole, Hibiclens. Advised patient Please use medication as prescribed. Please use warm compresses. Follow-up with your primary care doctor. Follow-up with a risk intern. Return to emergency room for new or worsening symptoms. Critical care attestation.: If time is entered above; I have spent that time in minutes in the direct care of this critically ill patient, excluding procedure time. ED Disposition Clinical Impression: Cellulitis Qualifiers: Site of cellulitis: trunk Site of cellulitis of trunk: unspecified site Qual ified Code(s): L03.319 - Cellulitis of trunk, unspecified Disposition: TO HOME OR SELFCARE Is pt being admited?: No Does the pt Need Aspirin: No Condition: Stable Instructions: Cellulitis, Adult Additional Instructions: Please use medication as prescribed. Please use warm compresses. Follow-up with your primary care doctor. Follow-up with a risk intern. Return to emergency room for new or worsening symptoms. Prescriptions: Sulfamethoxazole/Trimethoprim [Bactrim DS TAB] 1 each PO BID 10 Days #20 tablet Fluconazole [Diflucan TAB] 100 mg PO QDAY 2 Days #2 tablet Chlorhexidine Gluconate [Hibiclens] 30 ml TP DAILY #1 bottle Referrals: EDUARDO VELIZ MD [Staff Physician] - 2-3 Days [facility] [Outside] - 2-3 Days [facility] [Outside] - 2-3 Days [facility] [Provider Group] - 2-3 Days MOISES MYLES MD [Staff Physician] - 2-3 Days Time of Disposition: 14:42 Print Language: SYRIAC
== END 2020-12-19 15:07 | disposition home or self-care (01) ==
LOC: ED 13:29
DX: L03.90 Cellulitis, unspecified (principal); Z98.890 Other specified postprocedural states; Z79.899 Other long term (current) drug therapy
CPT/HCPCS: 99281

== ENCOUNTER 2021-06-28 13:33 | Emergency (ER) | payer MEDICAID ==
--- NOTE | 2021-06-28 14:25 | Emergency Department Report ---
ED Fall HPI - General Chief Complaint: Fall Stated Complaint: SLIP AND FALL Time Seen by Provider: 06/28/21 13:47 Source: patient Mode of arrival: Ambulatory - History of Present Illness Initial Comments: Patient is a 35-year-old female presents emergency room complaints of a slip and fall that occurred just prior to arrival. Patient states that she slipped in some water and fell to the ground. She reports that she hit her head. She is complaining of headache and bilateral knee pain. She denies any loss conscious, vomiting, vision changes, numbness, weakness, bowel bladder incontinence. Patient denies past medical history. No allergies to medications. - Related Data Previous Rx's Medication Instructions Recorded Last Taken Type ALPRAZolam [Xanax TAB] 0.5 mg PO BID PRN #6 tab 12/11/16 Unknown Rx Ciprofloxacin HCl [Ciprofloxacin 500 mg PO Q12HR 7 Days tab 12/11/16 Unknown Rx TAB] Sulfamethoxazole/Trimethoprim 1 each PO BID #6 tablet 12/11/16 Unknown Rx [Bactrim DS TAB] Ferrous Gluconate [Fergon 325 MG 325 mg PO TID #20 tablet 08/26/18 Unknown Rx tab] HYDROcodone/APAP 5-325 [[place] 1 each PO Q6HR PRN #10 tablet 08/26/18 Unknown Rx 5/325] Sulfamethoxazole/Trimethoprim 1 each PO BID #14 tablet 08/26/18 Unknown Rx [Bactrim DS TAB] Chlorhexidine Gluconate [Hibiclens] 30 ml TP DAILY #1 bottle 12/19/20 Unknown Rx Fluconazole [Diflucan TAB] 100 mg PO QDAY 2 Days #2 tablet 12/19/20 Unknown Rx Sulfamethoxazole/Trimethoprim 1 each PO BID 10 Days #20 tablet 12/19/20 Unknown Rx [Bactrim DS TAB] Naproxen 375 mg PO BID PRN #14 tablet 06/28/21 Unknown Rx Allergies Allergy/AdvReac Type Severity Reaction Status Date / Time No Known Allergies Allergy Unverified 12/19/20 13:39 ED Review of Systems ROS: Stated complaint: SLIP AND FALL Other details as noted in HPI Comment: All other systems reviewed and negative ED Past Medical Hx - Surgical History Hx Cholecystectomy: Yes Additional Surgical History: - Social History Smoking Status: Never Smoker Substance Use Type: None - Medications Home Medications: Home Medications Medication Instructions Recorded Confirmed Last Taken Type ALPRAZolam [Xanax TAB] 0.5 mg PO BID PRN #6 tab 12/11/16 Unknown Rx Ciprofloxacin HCl [Ciprofloxacin 500 mg PO Q12HR 7 Days tab 12/11/16 Unknown Rx TAB] Sulfamethoxazole/Trimethoprim 1 each PO BID #6 tablet 12/11/16 Unknown Rx [Bactrim DS TAB] Ferrous Gluconate [Fergon 325 MG 325 mg PO TID #20 tablet 08/26/18 Unknown Rx tab] HYDROcodone/APAP 5-325 [[place] 1 each PO Q6HR PRN #10 tablet 08/26/18 Unknown Rx 5/325] Sulfamethoxazole/Trimethoprim 1 each PO BID #14 tablet 08/26/18 Unknown Rx [Bactrim DS TAB] Chlorhexidine Gluconate [Hibiclens] 30 ml TP DAILY #1 bottle 12/19/20 Unknown Rx Fluconazole [Diflucan TAB] 100 mg PO QDAY 2 Days #2 tablet 12/19/20 Unknown Rx Sulfamethoxazole/Trimethoprim 1 each PO BID 10 Days #20 tablet 12/19/20 Unknown Rx [Bactrim DS TAB] Naproxen 375 mg PO BID PRN #14 tablet 06/28/21 Unknown Rx ED Physical Exam - General Limitations: No Limitations General appearance: alert, in no apparent distress - Head Head exam: Present: atraumatic, normocephalic, other (no skull ttp) - Eye Eye exam: Present: normal appearance, PERRL, EOMI. Absent: periorbital swelling, periorbital tenderness - ENT ENT exam: Present: mucous membranes moist - Neck Neck exam: Present: normal inspection, full ROM. Absent: tenderness, meningismus - Respiratory Respiratory exam: Present: normal lung sounds bilaterally. Absent: respiratory distress, wheezes, rales, rhonchi, stridor, chest wall tenderness, accessory muscle use, decreased breath sounds, prolonged expiratory - Cardiovascular Cardiovascular Exam: Present: regular rate, normal rhythm, normal heart sounds. Absent: systolic murmur, diastolic murmur, rubs, gallop - Extremities Exam Extremities exam: Present: other (mild bilateral knee ttp, no edema, no ecchymosis, FROM of the BLE, neurovascularly intact) - Back Exam Back exam: Present: normal inspection, full ROM. Absent: paraspinal tenderness, vertebral tenderness - Neurological Exam Neurological exam: Present: alert, oriented X3, CN II-XII intact, normal gait. Absent: motor sensory deficit - Psychiatric Psychiatric exam: Present: normal affect, normal mood - Skin Skin exam: Present: warm, dry, intact ED Course Vital Signs 06/28/21 06/28/21 13:35 14:49 Temperature 98.1 F 98.5 F Pulse Rate 104 H 97 H Respiratory 20 15 Rate Blood Pressure 168/107 170/106 [Right] O2 Sat by Pulse 99 97 Oximetry ED Medical Decision Making - Lab Data Vital Signs 06/28/21 06/28/21 13:35 14:49 Temperature 98.1 F 98.5 F Pulse Rate 104 H 97 H Respiratory 20 15 Rate Blood Pressure 168/107 170/106 [Right] O2 Sat by Pulse 99 97 Oximetry - Radiology Data Radiology results: report reviewed Ordering Physician: YVONNE STEINER Date of Service: 06/28/21 Procedure(s): XR knee BILAT 3V Accession Number(s): [id number] cc: YVONNE STEINER Fluoro Time In Minutes: XR knee BILAT 3V INDICATION / CLINICAL INFORMATION: bilateral knee pain after slip and fall. COMPARISON: None available. FINDINGS: BONES/JOINT(S): No acute fracture or subluxation. No significant degenerative changes. SOFT TISSUES: No significant abnormality. ADDITIONAL FINDINGS: None. Signer Name: Wyatt Avalos MD Signed: 06/28/2021 2:26 PM Workstation Name: [id number] Transcribed By: JADA Dictated By: Wyatt Avalos MD Electronically Authenticated By: Wyatt Avalos MD Signed Date/Time: 06/28/21 142 DD/ 24 TD/TT: - Medical Decision Making Patient is a 35-year-old female presents emergency room complaints of a slip and fall that occurred just prior to arrival. Patient states that she slipped in some water and fell to the ground. She reports that she hit her head. She is complaining of headache and bilateral knee pain. She denies any loss conscious, vomiting, vision changes, numbness, weakness, bowel bladder incontinence. Patient denies past medical history. No allergies to medications. Vitals with elevated blood pressure, patient denies any history of hypertension, patient has never been on medication for blood pressure, she denies any symptoms related to elevated blood pressure, will have patient follow-up with primary care doctor, discussed weight loss, low-sodium diet, aerobic exercise, and keeping a blood pressure log and taking this with a primary care doctor, patient verbalized understanding. On exam:mild bilateral knee ttp, no edema, no ecchymosis, FROM of the BLE, neurovascularly intact, no skull tenderness palpation, no raccoon eyes, no riggs signs, no neuro deficits, ambulatory without difficulty. [place] CT head rules 0, CT head patient is not recommended. X-ray bilateral knees BONES/JOINT(S): No acute fracture or subluxation. No significant degenerative changes. SOFT TISSUES: No significant abnormality. ADDITIONAL FINDINGS: None. Discussed all findings with patient. Advised patient Please take medication as prescribed as needed. Follow-up with your primary care doctor. Return to emergency room for any new or worsening symptoms. Critical care attestation.: If time is entered above; I have spent that time in minutes in the direct care of this critically ill patient, excluding procedure time. ED Disposition Clinical Impression: Fall Qualifiers: Encounter type: initial encounter Qualified Code(s): W19.XXXA - Unspecified fall, initial encounter Knee pain Qualifiers: Chronicity: acute Laterality: bilateral Qualified Code(s): M25.561 - Pain in right knee Headache Qualifiers: Headache type: unspecified Headache chronicity pattern: acute headache Intractability: not intractable Qualified Code(s): R51.9 - Headache, unspecified Disposition: 01 HOME / SELF CARE / HOMELESS Is pt being admited?: No Does the pt Need Aspirin: No Condition: Stable Instructions: Musculoskeletal Pain Additional Instructions: Please take medication as prescribed as needed. Follow-up with your primary care doctor. Return to emergency room for any new or worsening symptoms. Prescriptions: Naproxen 375 mg PO BID PRN #14 tablet PRN Reason: pain Referrals: PRIMARY MD ZACHARY [Primary Care Provider] - 3-5 Days MOISES MYLES MD [Staff Physician] - 3-5 Days [facility] [Provider Group] - 3-5 Days Time of Disposition: 14:35 Print Language: UZBEK
--- NOTE | 2021-06-28 14:30 | XRay Report ---
XR knee BILAT 3V INDICATION / CLINICAL INFORMATION: bilateral knee pain after slip and fall. COMPARISON: None available. FINDINGS: BONES/JOINT(S): No acute fracture or subluxation. No significant degenerative changes. SOFT TISSUES: No significant abnormality. ADDITIONAL FINDINGS: None. Signer Name: Wyatt Avalos MD Signed: 06/28/2021 2:26 PM Workstation Name: [id number]
[2021-06-28 14:50] VITALS: BP 170/106
== END 2021-06-28 14:52 | disposition home or self-care (01) ==
LOC: ED 13:33
DX: M25.561 Pain in right knee (principal); M25.562 Pain in left knee; R51.9 Headache, unspecified; W01.0XXA Fall on same level from slipping, tripping and stumbling without subsequent striking against object, initial encounter; Y93.89 Activity, other specified; Y92.89 Other specified places as the place of occurrence of the external cause; Y99.8 Other external cause status
CPT/HCPCS: 99283

== ENCOUNTER 2021-11-18 15:22 | Emergency (ER) | payer MEDICAID ==
[2021-11-18 16:44] VITALS: BP 161/81
[2021-11-18] MEDS ORDERED: TETANUS,DIPH,PERTUSS(ACELL) VACCINE 0.5 ML SYRINGE IM ONE (17:15)
[2021-11-18] MEDS ORDERED: IBUPROFEN 400 MG TAB PO ONE (17:15)
[2021-11-18] MEDS ORDERED: ACETAMINOPHEN 325 MG TAB PO ONE (17:15)
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
== END 2021-11-18 18:10 | disposition home or self-care (01) ==
LOC: ED 15:22
DX: S40.812A Abrasion of left upper arm, initial encounter (principal); M79.602 Pain in left arm; X58.XXXA Exposure to other specified factors, initial encounter; Y93.89 Activity, other specified; Y92.89 Other specified places as the place of occurrence of the external cause; Y99.8 Other external cause status
CPT/HCPCS: 99283

== ENCOUNTER 2022-01-06 11:43 | Emergency (ER) | payer MEDICAID ==
[2022-01-06 12:53] LABS: Basophils # (Auto) 0.1 K/mm3 (0.0-0.1); Basophils % (Auto) 0.5 % (0.0-1.8); Eosinophils # (Auto) 0.2 K/mm3 (0.0-0.4); Eosinophils % (Auto) 1.6 % (0.0-4.3); Hematocrit 35.9 % (30.3-42.9); Hemoglobin 11.3 gm/dl (10.1-14.3); Lymphocytes # (Auto) 3.5 K/mm3 (1.2-5.4); Lymphocytes % (Auto) 36.2 % (13.4-35.0); Mean Corpuscular HGB Conc 32 % (30-34); Mean Corpuscular Volume 82 fl (79-97); Monocytes # (Auto) 0.6 K/mm3 (0.0-0.8); Monocytes % (Auto) 6.4 % (0.0-7.3); Platelet Count 396 K/mm3 (140-440); Red Blood Count 4.36 M/mm3 (3.65-5.03); Red Cell Distribution Width 19.2 % (13.2-15.2)
[2022-01-06 13:05] LABS: Alanine Aminotransferase 12 units/L (7-56); Albumin 3.5 g/dL (3.9-5); Blood Urea Nitrogen 7 mg/dL (7-17); Calcium 8.8 mg/dL (8.4-10.2); Hemolysis Index 2
[2022-01-06 13:09] LABS: BUN/Creatinine Ratio 10
[2022-01-06] MEDS ORDERED: HYDROcodone/ACETAMINOPHEN 5-325 MG TAB PO ONE (17:32)
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
[2022-01-06] MEDS ORDERED: amLODIPine 5 MG TAB PO ONE (17:55)
--- NOTE | 2022-01-06 20:04 | Vascular Lab Report ---
DUPLEX DOPPLER LOWER EXTREMITY VEINS, BILATERAL INDICATION / CLINICAL INFORMATION: pain with swelling. TECHNIQUE: Duplex doppler imaging was performed through the veins of both lower extremities using venous christopher brigido and other maneuvers. COMPARISON: None available. FINDINGS: RIGHT COMMON FEMORAL VEIN: Negative. RIGHT FEMORAL VEIN: Negative. RIGHT POPLITEAL VEIN: Negative. RIGHT CALF VEINS: Negative. LEFT COMMON FEMORAL VEIN: Negative. LEFT FEMORAL VEIN: Negative. LEFT POPLITEAL VEIN: Negative. LEFT CALF VEINS: Negative. ADDITIONAL FINDINGS: None. IMPRESSION: 1. No sonographic evidence for DVT in either lower extremity. Signer Name: Nicho Khan MD Signed: 01/06/2022 7:59 PM Workstation Name: [id number]
[2022-01-06 20:43] VITALS: BP 156/94
== END 2022-01-06 21:13 | disposition home or self-care (01) ==
LOC: ED 11:43
DX: L03.115 Cellulitis of right lower limb (principal); L03.116 Cellulitis of left lower limb; I10 Essential (primary) hypertension
CPT/HCPCS: 36415; 80053; 82962; 85025; 93970; 99284

== ENCOUNTER 2022-03-18 12:20 | Emergency (ER) | payer MEDICAID ==
[2022-03-18 13:45] VITALS: BP 159/95
[2022-03-18] MEDS ORDERED: LIDOCAINE-MPF (1%) 10 MG/1 ML VIAL 5 ML INFILTRATI ONE (22:22)
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
== END 2022-03-19 00:06 | disposition home or self-care (01) ==
LOC: ED 12:20
DX: J02.9 Acute pharyngitis, unspecified (principal); Z20.2 Contact with and (suspected) exposure to infections with a predominantly sexual mode of transmission; E11.9 Type 2 diabetes mellitus without complications; Z98.890 Other specified postprocedural states; Z79.899 Other long term (current) drug therapy
CPT/HCPCS: 96372; 99282; J0696; J3490

== ENCOUNTER 2022-04-01 13:00 | Outpatient (CLI) | payer MEDICAID ==
[2022-04-01] MEDS ORDERED: LIDOCAINE (4%) 40 MG/ML TOPICAL SOLN 50 ML BOTTLE TP ONE (14:14)
== END 2022-04-01 13:01 | disposition home or self-care (01) ==
LOC: WOUND 13:00
PROVIDERS: ATTEND Surgery
DX: I87.313 Chronic venous hypertension (idiopathic) with ulcer of bilateral lower extremity (principal); E11.622 Type 2 diabetes mellitus with other skin ulcer; L97.822 Non-pressure chronic ulcer of other part of left lower leg with fat layer exposed; L97.812 Non-pressure chronic ulcer of other part of right lower leg with fat layer exposed; L73.2 Hidradenitis suppurativa; E78.5 Hyperlipidemia, unspecified; F31.9 Bipolar disorder, unspecified; F41.9 Anxiety disorder, unspecified; F17.200 Nicotine dependence, unspecified, uncomplicated; Z90.49 Acquired absence of other specified parts of digestive tract; Z79.899 Other long term (current) drug therapy
CPT/HCPCS: 99214; G0463